=== PATIENT | male | born 1965 | race African-American/Black ===

== ENCOUNTER 2022-06-07 12:21 | Inpatient (IN) | payer OTHER ==
[2022-06-07 13:15] VITALS: BMI 30.1
[2022-06-07] MEDS ORDERED: IBUPROFEN 600 MG TABLET (FP) PO PRN (15:09)
[2022-06-07] MEDS ORDERED: ONDANSETRON *ODT* 4 MG TABLET SL PRN (15:09)
[2022-06-07] MEDS ORDERED: ACETAMINOPHEN 325 MG TABLET (FP) PO PRN ×2 (15:09)
[2022-06-07] MEDS ORDERED: MAGNESIUM HYDROX 2400MG/30ML ORAL SUSPENSION 30 ML CUP PO PRN (15:09)
[2022-06-07] MEDS ORDERED: BISMUTH SUBSALICYLATE 524 MG/30 ML PO PRN (15:09)
[2022-06-07] MEDS ORDERED: BENZOCAINE/MENTHOL (CHLORASEPTIC ) LOZENGE MM PRN (15:09)
[2022-06-07] MEDS ORDERED: LOPERAMIDE HCL 2 MG CAPSULE PO PRN (15:09)
[2022-06-07] MEDS ORDERED: DICYCLOMINE HCL 10 MG CAPSULE PO PRN (15:09)
[2022-06-07] MEDS ORDERED: MAGNESIUM CITRATE 300 ML BOTTLE PO PRN (15:09)
[2022-06-07] MEDS ORDERED: chlordiazePOXIDE HCL 25 MG CAPSULE PO PRN (15:09)
[2022-06-07] MEDS ORDERED: NALOXONE HCL (KLOXXADO) 8 MG SPRAY NS PRN (15:09)
[2022-06-07] MEDS ORDERED: MAG HYDROX/AL HYDROX/SIMETH 30 ML UNIT-DOSE CUP PO PRN (15:09)
[2022-06-07] MEDS ORDERED: IBUPROFEN 400 MG TABLET (FP) PO PRN (15:09)
[2022-06-07] MEDS: chlordiazePOXIDE HCL 25 MG CAPSULE PO SCH ×2 (16:33→23:38)
[2022-06-07] MEDS: hydrOXYzine PAMOATE 25 MG CAPSULE (FP) PO SCH ×2 (18:35→23:40)
[2022-06-07] MEDS: PRENATAL VITAMINS W/ FOLIC ACID TABLET (FP) PO SCH (20:30)
[2022-06-07] MEDS: NICOTINE 14 MG/24 HOURS TOPICAL PATCH TD SCH (20:30)
[2022-06-07] MEDS: MELATONIN 5 MG TABLETS PO SCH (23:38)
[2022-06-07] MEDS: THIAMINE HCL 100 MG TABLET (FP) PO SCH (23:38)
[2022-06-08] MEDS: hydrOXYzine PAMOATE 25 MG CAPSULE (FP) PO SCH ×5 (05:44→22:20)
[2022-06-08] MEDS: chlordiazePOXIDE HCL 25 MG CAPSULE PO SCH ×4 (05:44→22:20)
[2022-06-08 10:26] LABS: HEMATOCRIT 38.5 % (35.4-49); HEMOGLOBIN 12.3 GM/dL (11.7-16.9); MCH 29.8 pg (25.7-33.7); MEAN CELL VOLUME 93.2 fl (80-96); MEAN PLT VOLUME 9.2 fl (7.5-11.1); PLATELET COUNT 189 10^3/uL (134-434); RBC 4.13 M/mm3 (4.00-5.60); RDW 14.4 % (11.9-15.9)
[2022-06-08] MEDS: PRENATAL VITAMINS W/ FOLIC ACID TABLET (FP) PO SCH (10:46)
[2022-06-08] MEDS: NICOTINE 14 MG/24 HOURS TOPICAL PATCH TD SCH (10:46)
[2022-06-08] MEDS: NICOTINE 10 MG CARTRIDGE (INHALER) IH PRN (10:47)
[2022-06-08 10:53] LABS: ALBUMIN 3.5 g/dl (3.4-5.0); CALCIUM 9.1 mg/dL (8.5-10.1)
[2022-06-08 10:54] LABS: BLOOD UREA NITROGEN 16.4 mg/dL (7-18)
[2022-06-08 10:58] LABS: BILIRUBIN,TOTAL 0.2 mg/dL (0.2-1); TOT PROT 6.8 g/dl (6.4-8.2)
[2022-06-08 11:00] LABS: CREATININE 1.3 mg/dL (0.55-1.3)
[2022-06-08 14:49] LABS: HIV INTERPRETATION NEGATIVE (NEGATIVE)
[2022-06-08] MEDS: APIXABAN 5 MG TABLET PO SCH (22:20)
[2022-06-08] MEDS: THIAMINE HCL 100 MG TABLET (FP) PO SCH (22:20)
[2022-06-08] MEDS: MELATONIN 5 MG TABLETS PO SCH (22:20)
[2022-06-09] MEDS: chlordiazePOXIDE HCL 25 MG CAPSULE PO SCH ×4 (06:14→22:43)
[2022-06-09] MEDS: hydrOXYzine PAMOATE 25 MG CAPSULE (FP) PO SCH ×5 (06:14→22:43)
[2022-06-09] MEDS: PRENATAL VITAMINS W/ FOLIC ACID TABLET (FP) PO SCH (10:36)
[2022-06-09] MEDS: NICOTINE 14 MG/24 HOURS TOPICAL PATCH TD SCH (10:36)
[2022-06-09] MEDS: APIXABAN 5 MG TABLET PO SCH ×2 (10:36→22:42)
[2022-06-09] MEDS: LISINOPRIL 5 MG TABLET PO SCH (10:36)
[2022-06-09] MEDS: METHOCARBAMOL 500 MG TABLET PO PRN (13:07)
[2022-06-09] MEDS: MELATONIN 5 MG TABLETS PO SCH (22:42)
[2022-06-09] MEDS: THIAMINE HCL 100 MG TABLET (FP) PO SCH (22:44)
[2022-06-10] MEDS ORDERED: chlordiazePOXIDE HCL 10 MG CAPSULE PO PRN
[2022-06-10] MEDS: chlordiazePOXIDE HCL 10 MG CAPSULE PO SCH ×4 (06:15→22:30)
[2022-06-10] MEDS: hydrOXYzine PAMOATE 25 MG CAPSULE (FP) PO SCH ×5 (06:19→22:30)
[2022-06-10] MEDS: APIXABAN 5 MG TABLET PO SCH ×2 (10:29→22:30)
[2022-06-10] MEDS: NICOTINE 14 MG/24 HOURS TOPICAL PATCH TD SCH (10:29)
[2022-06-10] MEDS: LISINOPRIL 5 MG TABLET PO SCH (10:29)
[2022-06-10] MEDS: PRENATAL VITAMINS W/ FOLIC ACID TABLET (FP) PO SCH (10:29)
[2022-06-10] MEDS: NICOTINE 10 MG CARTRIDGE (INHALER) IH PRN (10:30)
[2022-06-10] MEDS: MELATONIN 5 MG TABLETS PO SCH (22:30)
[2022-06-10] MEDS: THIAMINE HCL 100 MG TABLET (FP) PO SCH (22:30)
[2022-06-11] MEDS: chlordiazePOXIDE HCL 10 MG CAPSULE PO SCH ×2 (06:36→17:52)
[2022-06-11] MEDS: hydrOXYzine PAMOATE 25 MG CAPSULE (FP) PO SCH ×5 (06:37→22:32)
[2022-06-11] MEDS: PRENATAL VITAMINS W/ FOLIC ACID TABLET (FP) PO SCH (10:17)
[2022-06-11] MEDS: APIXABAN 5 MG TABLET PO SCH ×2 (10:17→22:32)
[2022-06-11] MEDS: LISINOPRIL 5 MG TABLET PO SCH (10:18)
[2022-06-11] MEDS: NICOTINE 14 MG/24 HOURS TOPICAL PATCH TD SCH (10:19)
[2022-06-11 20:58] VITALS: RESP 18
[2022-06-11] MEDS: MELATONIN 5 MG TABLETS PO SCH (22:31)
[2022-06-11] MEDS: METHOCARBAMOL 500 MG TABLET PO PRN (22:31)
[2022-06-11] MEDS: THIAMINE HCL 100 MG TABLET (FP) PO SCH (22:32)
[2022-06-12] MEDS ORDERED: chlordiazePOXIDE HCL 10 MG CAPSULE PO ONE (05:00)
[2022-06-12] MEDS: hydrOXYzine PAMOATE 25 MG CAPSULE (FP) PO SCH ×2 (06:06→10:20)
[2022-06-12 08:47] VITALS: BP 137/72; PULSE 65; TEMP 98.3
[2022-06-12] MEDS: LISINOPRIL 5 MG TABLET PO SCH (10:18)
[2022-06-12] MEDS: NICOTINE 14 MG/24 HOURS TOPICAL PATCH TD SCH (10:19)
[2022-06-12] MEDS: APIXABAN 5 MG TABLET PO SCH (10:19)
[2022-06-12] MEDS: PRENATAL VITAMINS W/ FOLIC ACID TABLET (FP) PO SCH (10:19)
== END 2022-06-12 10:56 | disposition home or self-care (01) | DRG 773 ==
LOC: YASAS 12:21 → SUATTDRO 12:21 → Y3N 15:53
PROVIDERS: ADMIT Allergy & Immunology; ATTEND Surgery
PROC: HZ2ZZZZ Detoxification Services for Substance Abuse Treatment (ICD-10-PCS; principal; 2022-06-07)
DX: F11.23 Opioid dependence with withdrawal (principal); F10.230 Alcohol dependence with withdrawal, uncomplicated; F14.20 Cocaine dependence, uncomplicated; F17.210 Nicotine dependence, cigarettes, uncomplicated; E11.9 Type 2 diabetes mellitus without complications; I26.99 Other pulmonary embolism without acute cor pulmonale; Z79.84 Long term (current) use of oral hypoglycemic drugs; Z91.14 Patient's other noncompliance with medication regimen; Z79.01 Long term (current) use of anticoagulants; Z59.00 Homelessness unspecified
CPT/HCPCS: 36415; 80053; 82962; 85027; 86780; 87389; C9803-CS; U0003; U0005

== ENCOUNTER 2023-01-02 19:31 | Inpatient (IN) | payer OTHER ==
[2023-01-02 20:41] VITALS: BMI 25.2
[2023-01-02] MEDS ORDERED: LOPERAMIDE HCL 2 MG CAPSULE PO PRN (22:27)
[2023-01-02] MEDS ORDERED: MAGNESIUM HYDROX 2400MG/30ML ORAL SUSPENSION 30 ML CUP PO PRN (22:27)
[2023-01-02] MEDS ORDERED: BISMUTH SUBSALICYLATE 524 MG/30 ML PO PRN (22:27)
[2023-01-02] MEDS ORDERED: DICYCLOMINE HCL 10 MG CAPSULE PO PRN (22:27)
[2023-01-02] MEDS ORDERED: IBUPROFEN 400 MG TABLET (FP) PO PRN (22:27)
[2023-01-02] MEDS ORDERED: IBUPROFEN 600 MG TABLET (FP) PO PRN (22:27)
[2023-01-02] MEDS ORDERED: BENZOCAINE/MENTHOL (CHLORASEPTIC ) LOZENGE MM PRN (22:27)
[2023-01-02] MEDS ORDERED: ONDANSETRON *ODT* 4 MG TABLET SL PRN (22:27)
[2023-01-02] MEDS ORDERED: MAG HYDROX/AL HYDROX/SIMETH 30 ML UNIT-DOSE CUP PO PRN (22:27)
[2023-01-02] MEDS ORDERED: P-EPHED 60MG/TRIPROLIDI 2.5MG TABLET PO PRN (22:27)
[2023-01-02] MEDS ORDERED: POLYETHYLENE GLYCOL (HEALTHYLAX) 3350 17 GM PACKET PO PRN (22:27)
[2023-01-02] MEDS ORDERED: ACETAMINOPHEN 325 MG TABLET (FP) PO PRN ×2 (22:27)
[2023-01-03] MEDS: metFORMIN HCL 500 MG TABLET (FP) PO SCH ×2 (08:16→17:23)
[2023-01-03] MEDS ORDERED: chlordiazePOXIDE HCL 25 MG CAPSULE PO PRN (09:47)
[2023-01-03] MEDS ORDERED: ASPIRIN COATED 81 MG TABLET.EC PO SCH (10:00)
[2023-01-03] MEDS: LIDOCAINE 5% TOPICAL PATCH TP SCH (10:15)
[2023-01-03] MEDS: METHOCARBAMOL 500 MG TABLET PO PRN (10:16)
[2023-01-03] MEDS: APIXABAN 5 MG TABLET PO SCH ×2 (10:16→22:18)
[2023-01-03] MEDS: PRENATAL VITAMINS W/ FOLIC ACID TABLET (FP) PO SCH (10:17)
[2023-01-03] MEDS: LISINOPRIL 5 MG TABLET PO SCH (10:18)
[2023-01-03 11:00] LABS: HEMATOCRIT 38.1 % (35.4-49); MCH 31.8 pg (25.7-33.7); MCHC 34.1 g/dl (32.0-35.9); MEAN CELL VOLUME 93.3 fl (80-96); MEAN PLT VOLUME 7.9 fl (7.5-11.1); PLATELET COUNT 179 10^3/uL (134-434); RBC 4.08 M/mm3 (4.00-5.60); RDW 14.8 % (11.9-15.9); WHITE BLOOD COUNT 6.8 K/mm3 (4.0-10.0)
[2023-01-03] MEDS: chlordiazePOXIDE HCL 25 MG CAPSULE PO SCH ×3 (11:03→22:19)
[2023-01-03 11:29] LABS: BILIRUBIN,TOTAL 0.3 mg/dL (0.2-1); TOT PROT 6.6 g/dl (6.4-8.2)
[2023-01-03 11:41] LABS: BLOOD UREA NITROGEN 19.2 mg/dL (7-18)
[2023-01-03 11:43] LABS: ALBUMIN 3.3 g/dl (3.4-5.0)
[2023-01-03 12:46] LABS: HIV INTERPRETATION NEGATIVE (NEGATIVE)
[2023-01-03] MEDS: THIAMINE HCL 100 MG TABLET (FP) PO SCH (22:19)
[2023-01-03] MEDS: LIDOCAINE PATCH REMOVAL MC SCH (22:19)
[2023-01-04] MEDS: chlordiazePOXIDE HCL 25 MG CAPSULE PO SCH ×4 (05:14→22:35)
[2023-01-04] MEDS: metFORMIN HCL 500 MG TABLET (FP) PO SCH ×2 (08:00→17:18)
[2023-01-04] MEDS: APIXABAN 5 MG TABLET PO SCH ×2 (10:19→22:35)
[2023-01-04] MEDS: ASPIRIN 81 MG CHEWABLE TABLETS PO SCH (10:19)
[2023-01-04] MEDS: LISINOPRIL 5 MG TABLET PO SCH (10:20)
[2023-01-04] MEDS: LIDOCAINE 5% TOPICAL PATCH TP SCH (10:20)
[2023-01-04] MEDS: PRENATAL VITAMINS W/ FOLIC ACID TABLET (FP) PO SCH (10:20)
[2023-01-04] MEDS: THIAMINE HCL 100 MG TABLET (FP) PO SCH (22:35)
[2023-01-04] MEDS: LIDOCAINE PATCH REMOVAL MC SCH (22:36)
[2023-01-05] MEDS: chlordiazePOXIDE HCL 25 MG CAPSULE PO SCH ×4 (05:20→22:36)
[2023-01-05] MEDS: guaiFENesin 200 MG/10 ML 10 ML UNIT-DOSE CUPS PO PRN ×2 (05:33→22:38)
[2023-01-05] MEDS: metFORMIN HCL 500 MG TABLET (FP) PO SCH ×2 (06:29→16:40)
[2023-01-05] MEDS: LIDOCAINE 5% TOPICAL PATCH TP SCH (10:29)
[2023-01-05] MEDS: PRENATAL VITAMINS W/ FOLIC ACID TABLET (FP) PO SCH (10:29)
[2023-01-05] MEDS: METHOCARBAMOL 500 MG TABLET PO PRN (10:29)
[2023-01-05] MEDS: ASPIRIN 81 MG CHEWABLE TABLETS PO SCH (10:29)
[2023-01-05] MEDS: APIXABAN 5 MG TABLET PO SCH ×2 (10:29→22:36)
[2023-01-05] MEDS: LISINOPRIL 5 MG TABLET PO SCH (10:30)
[2023-01-05] MEDS: hydrOXYzine PAMOATE 25 MG CAPSULE (FP) PO PRN (10:30)
[2023-01-05] MEDS: MELATONIN 5 MG TABLETS PO PRN (22:36)
[2023-01-05] MEDS: THIAMINE HCL 100 MG TABLET (FP) PO SCH (22:36)
[2023-01-05] MEDS: LIDOCAINE PATCH REMOVAL MC SCH (23:34)
[2023-01-06] MEDS ORDERED: chlordiazePOXIDE HCL 10 MG CAPSULE PO PRN
[2023-01-06] MEDS: chlordiazePOXIDE HCL 10 MG CAPSULE PO SCH ×4 (05:24→22:24)
[2023-01-06] MEDS: guaiFENesin 200 MG/10 ML 10 ML UNIT-DOSE CUPS PO PRN (05:29)
[2023-01-06] MEDS: metFORMIN HCL 500 MG TABLET (FP) PO SCH (06:21)
[2023-01-06] MEDS: ASPIRIN 81 MG CHEWABLE TABLETS PO SCH (10:14)
[2023-01-06] MEDS: LISINOPRIL 5 MG TABLET PO SCH (10:14)
[2023-01-06] MEDS: hydrOXYzine PAMOATE 25 MG CAPSULE (FP) PO PRN (10:14)
[2023-01-06] MEDS: PRENATAL VITAMINS W/ FOLIC ACID TABLET (FP) PO SCH (10:14)
[2023-01-06] MEDS: APIXABAN 5 MG TABLET PO SCH ×2 (10:14→22:24)
[2023-01-06] MEDS: LIDOCAINE 5% TOPICAL PATCH TP SCH (10:15)
[2023-01-06] MEDS: LIDOCAINE PATCH REMOVAL MC SCH (22:24)
[2023-01-06] MEDS: THIAMINE HCL 100 MG TABLET (FP) PO SCH (22:24)
[2023-01-06] MEDS: MELATONIN 5 MG TABLETS PO PRN (22:25)
[2023-01-06] MEDS: METHOCARBAMOL 500 MG TABLET PO PRN (22:26)
[2023-01-07] MEDS: chlordiazePOXIDE HCL 10 MG CAPSULE PO SCH ×2 (05:39→17:27)
[2023-01-07] MEDS: guaiFENesin 200 MG/10 ML 10 ML UNIT-DOSE CUPS PO PRN (07:49)
[2023-01-07] MEDS: LIDOCAINE 5% TOPICAL PATCH TP SCH (10:20)
[2023-01-07] MEDS: APIXABAN 5 MG TABLET PO SCH ×2 (10:21→21:25)
[2023-01-07] MEDS: LISINOPRIL 5 MG TABLET PO SCH (10:22)
[2023-01-07] MEDS: ASPIRIN 81 MG CHEWABLE TABLETS PO SCH (10:22)
[2023-01-07] MEDS: PRENATAL VITAMINS W/ FOLIC ACID TABLET (FP) PO SCH (10:23)
[2023-01-07] MEDS: THIAMINE HCL 100 MG TABLET (FP) PO SCH (21:24)
[2023-01-07] MEDS: LIDOCAINE PATCH REMOVAL MC SCH (21:26)
[2023-01-07] MEDS: MELATONIN 5 MG TABLETS PO PRN (21:26)
[2023-01-08] MEDS ORDERED: chlordiazePOXIDE HCL 10 MG CAPSULE PO ONE (05:00)
[2023-01-08 09:28] VITALS: BP 119/56; PULSE 83; RESP 18; TEMP 97.7
[2023-01-08] MEDS: PRENATAL VITAMINS W/ FOLIC ACID TABLET (FP) PO SCH (09:32)
[2023-01-08] MEDS: LIDOCAINE 5% TOPICAL PATCH TP SCH (09:32)
[2023-01-08] MEDS: LISINOPRIL 5 MG TABLET PO SCH (09:32)
[2023-01-08] MEDS: hydrOXYzine PAMOATE 25 MG CAPSULE (FP) PO PRN (09:33)
[2023-01-08] MEDS: APIXABAN 5 MG TABLET PO SCH (09:33)
[2023-01-08] MEDS: METHOCARBAMOL 500 MG TABLET PO PRN (09:33)
[2023-01-08] MEDS: ASPIRIN 81 MG CHEWABLE TABLETS PO SCH (09:33)
== END 2023-01-08 11:45 | disposition other institution (70) | DRG 774 ==
LOC: YASAS 19:31 → Y6N 22:29 → UNDOADMIN 22:29 → Y6N 22:33
PROVIDERS: ADMIT Allergy & Immunology; ATTEND Surgery
PROC: HZ2ZZZZ Detoxification Services for Substance Abuse Treatment (ICD-10-PCS; principal; 2023-01-02)
DX: F10.230 Alcohol dependence with withdrawal, uncomplicated (principal); F14.20 Cocaine dependence, uncomplicated; F17.210 Nicotine dependence, cigarettes, uncomplicated; I10 Essential (primary) hypertension; E11.9 Type 2 diabetes mellitus without complications; Z79.84 Long term (current) use of oral hypoglycemic drugs; Z86.711 Personal history of pulmonary embolism
CPT/HCPCS: 36415; 80053; 82962; 83036; 85027; 86780; 87389; 87811; C9803-CS; U0003; U0005

== ENCOUNTER 2023-01-08 12:05 | Inpatient (IN) | payer OTHER ==
[2023-01-08] MEDS ORDERED: POLYETHYLENE GLYCOL (HEALTHYLAX) 3350 17 GM PACKET PO PRN (15:34)
[2023-01-08] MEDS ORDERED: MAGNESIUM HYDROX 2400MG/30ML ORAL SUSPENSION 30 ML CUP PO PRN (15:34)
[2023-01-08] MEDS ORDERED: ACETAMINOPHEN 325 MG TABLET (FP) PO PRN (15:34)
[2023-01-08] MEDS ORDERED: LOPERAMIDE HCL 2 MG CAPSULE PO PRN (15:34)
[2023-01-08] MEDS ORDERED: P-EPHED 60MG/TRIPROLIDI 2.5MG TABLET PO PRN (15:34)
[2023-01-08] MEDS ORDERED: MAG HYDROX/AL HYDROX/SIMETH 30 ML UNIT-DOSE CUP PO PRN (15:34)
[2023-01-08] MEDS ORDERED: IBUPROFEN 400 MG TABLET (FP) PO PRN (15:34)
[2023-01-08] MEDS: metFORMIN HCL 500 MG TABLET (FP) PO SCH (16:54)
[2023-01-08] MEDS: APIXABAN 5 MG TABLET PO SCH (21:15)
[2023-01-08] MEDS: MELATONIN 5 MG TABLETS PO SCH (21:16)
[2023-01-08] MEDS: THIAMINE HCL 100 MG TABLET (FP) PO SCH (21:16)
[2023-01-08] MEDS: guaiFENesin 200 MG/10 ML 10 ML UNIT-DOSE CUPS PO PRN (21:17)
[2023-01-08] MEDS ORDERED: metFORMIN HCL 500 MG TABLET (FP) PO SCH (22:00)
[2023-01-09] MEDS: metFORMIN HCL 500 MG TABLET (FP) PO SCH ×3 (06:22→16:34)
[2023-01-09] MEDS: guaiFENesin 200 MG/10 ML 10 ML UNIT-DOSE CUPS PO PRN (06:22)
[2023-01-09] MEDS: NICOTINE 7 MG/24 HOURS TOPICAL PATCH TD SCH (10:04)
[2023-01-09] MEDS: ASPIRIN 81 MG CHEWABLE TABLETS PO SCH (10:04)
[2023-01-09] MEDS: PRENATAL VITAMINS W/ FOLIC ACID TABLET (FP) PO SCH (10:04)
[2023-01-09] MEDS: APIXABAN 5 MG TABLET PO SCH ×2 (10:04→21:13)
[2023-01-09] MEDS: LISINOPRIL 5 MG TABLET PO SCH (10:05)
[2023-01-09] MEDS ORDERED: METHOCARBAMOL 500 MG TABLET PO PRN (13:51)
[2023-01-09] MEDS: LIDOCAINE 5% TOPICAL PATCH TP SCH (14:11)
[2023-01-09] MEDS: hydrOXYzine PAMOATE 25 MG CAPSULE (FP) PO PRN (21:13)
[2023-01-09] MEDS: THIAMINE HCL 100 MG TABLET (FP) PO SCH (21:13)
[2023-01-09] MEDS: MELATONIN 5 MG TABLETS PO SCH (21:13)
[2023-01-09] MEDS: LIDOCAINE PATCH REMOVAL MC SCH (21:14)
[2023-01-10] MEDS: metFORMIN HCL 500 MG TABLET (FP) PO SCH ×2 (06:26→17:19)
[2023-01-10] MEDS: guaiFENesin 200 MG/10 ML 10 ML UNIT-DOSE CUPS PO PRN ×2 (06:57→22:40)
[2023-01-10] MEDS: PRENATAL VITAMINS W/ FOLIC ACID TABLET (FP) PO SCH (09:42)
[2023-01-10] MEDS: ASPIRIN 81 MG CHEWABLE TABLETS PO SCH (09:43)
[2023-01-10] MEDS: LISINOPRIL 5 MG TABLET PO SCH (09:43)
[2023-01-10] MEDS: NICOTINE 7 MG/24 HOURS TOPICAL PATCH TD SCH (09:43)
[2023-01-10] MEDS: APIXABAN 5 MG TABLET PO SCH ×2 (09:43→21:43)
[2023-01-10] MEDS: LIDOCAINE 5% TOPICAL PATCH TP SCH (09:44)
[2023-01-10] MEDS: MELATONIN 5 MG TABLETS PO SCH (21:44)
[2023-01-10] MEDS: LIDOCAINE PATCH REMOVAL MC SCH (21:44)
[2023-01-10] MEDS: THIAMINE HCL 100 MG TABLET (FP) PO SCH (21:44)
[2023-01-11] MEDS: metFORMIN HCL 500 MG TABLET (FP) PO SCH ×2 (06:29→16:57)
[2023-01-11] MEDS: BENZOCAINE/MENTHOL (CHLORASEPTIC ) LOZENGE MM PRN (06:29)
[2023-01-11] MEDS: guaiFENesin 200 MG/10 ML 10 ML UNIT-DOSE CUPS PO PRN (06:30)
[2023-01-11] MEDS: ASPIRIN 81 MG CHEWABLE TABLETS PO SCH (10:01)
[2023-01-11] MEDS: PRENATAL VITAMINS W/ FOLIC ACID TABLET (FP) PO SCH (10:01)
[2023-01-11] MEDS: LIDOCAINE 5% TOPICAL PATCH TP SCH (10:02)
[2023-01-11] MEDS: APIXABAN 5 MG TABLET PO SCH ×2 (10:02→21:15)
[2023-01-11] MEDS: NICOTINE 7 MG/24 HOURS TOPICAL PATCH TD SCH (10:02)
[2023-01-11] MEDS: LISINOPRIL 5 MG TABLET PO SCH (10:03)
[2023-01-11] MEDS: VITAMINS A AND D TOPICAL OINTMENT 60 GM TUBE TP SCH (15:45)
[2023-01-11] MEDS: LIDOCAINE PATCH REMOVAL MC SCH (21:15)
[2023-01-11] MEDS: THIAMINE HCL 100 MG TABLET (FP) PO SCH (21:15)
[2023-01-11] MEDS: MELATONIN 5 MG TABLETS PO SCH (21:15)
[2023-01-12] MEDS: metFORMIN HCL 500 MG TABLET (FP) PO SCH ×2 (06:18→16:47)
[2023-01-12] MEDS: NICOTINE 7 MG/24 HOURS TOPICAL PATCH TD SCH (09:35)
[2023-01-12] MEDS: PRENATAL VITAMINS W/ FOLIC ACID TABLET (FP) PO SCH (09:35)
[2023-01-12] MEDS: ASPIRIN 81 MG CHEWABLE TABLETS PO SCH (09:37)
[2023-01-12] MEDS: APIXABAN 5 MG TABLET PO SCH ×2 (09:37→21:18)
[2023-01-12] MEDS: LIDOCAINE 5% TOPICAL PATCH TP SCH (09:38)
[2023-01-12] MEDS: LISINOPRIL 5 MG TABLET PO SCH (09:38)
[2023-01-12] MEDS: VITAMINS A AND D TOPICAL OINTMENT 60 GM TUBE TP SCH (09:39)
[2023-01-12] MEDS: THIAMINE HCL 100 MG TABLET (FP) PO SCH (21:18)
[2023-01-12] MEDS: LIDOCAINE PATCH REMOVAL MC SCH (21:18)
[2023-01-12] MEDS: MELATONIN 5 MG TABLETS PO SCH (21:18)
[2023-01-12] MEDS: hydrOXYzine PAMOATE 25 MG CAPSULE (FP) PO PRN (21:18)
[2023-01-13] MEDS: metFORMIN HCL 500 MG TABLET (FP) PO SCH (07:34)
[2023-01-13] MEDS: PRENATAL VITAMINS W/ FOLIC ACID TABLET (FP) PO SCH (09:52)
[2023-01-13] MEDS: ASPIRIN 81 MG CHEWABLE TABLETS PO SCH (09:53)
[2023-01-13] MEDS: NICOTINE 7 MG/24 HOURS TOPICAL PATCH TD SCH (09:53)
[2023-01-13] MEDS: APIXABAN 5 MG TABLET PO SCH ×2 (09:53→21:16)
[2023-01-13] MEDS: VITAMINS A AND D TOPICAL OINTMENT 60 GM TUBE TP SCH (09:54)
[2023-01-13] MEDS: LIDOCAINE 5% TOPICAL PATCH TP SCH (09:54)
[2023-01-13] MEDS: LISINOPRIL 5 MG TABLET PO SCH (09:54)
[2023-01-13] MEDS: MELATONIN 5 MG TABLETS PO SCH (21:16)
[2023-01-13] MEDS: THIAMINE HCL 100 MG TABLET (FP) PO SCH (21:16)
[2023-01-13] MEDS: LIDOCAINE PATCH REMOVAL MC SCH (21:17)
[2023-01-14] MEDS: LISINOPRIL 5 MG TABLET PO SCH (10:00)
[2023-01-14] MEDS: ASPIRIN 81 MG CHEWABLE TABLETS PO SCH (10:00)
[2023-01-14] MEDS: NICOTINE 7 MG/24 HOURS TOPICAL PATCH TD SCH (10:00)
[2023-01-14] MEDS: PRENATAL VITAMINS W/ FOLIC ACID TABLET (FP) PO SCH (10:00)
[2023-01-14] MEDS: APIXABAN 5 MG TABLET PO SCH ×2 (10:00→22:18)
[2023-01-14] MEDS: LIDOCAINE 5% TOPICAL PATCH TP SCH (10:00)
[2023-01-14] MEDS: VITAMINS A AND D TOPICAL OINTMENT 60 GM TUBE TP SCH (10:00)
[2023-01-14] MEDS: MELATONIN 5 MG TABLETS PO SCH (22:17)
[2023-01-14] MEDS: THIAMINE HCL 100 MG TABLET (FP) PO SCH (22:18)
[2023-01-14] MEDS: LIDOCAINE PATCH REMOVAL MC SCH (22:18)
[2023-01-15] MEDS: PRENATAL VITAMINS W/ FOLIC ACID TABLET (FP) PO SCH (09:41)
[2023-01-15] MEDS: LIDOCAINE 5% TOPICAL PATCH TP SCH (09:41)
[2023-01-15] MEDS: NICOTINE 7 MG/24 HOURS TOPICAL PATCH TD SCH (09:42)
[2023-01-15] MEDS: VITAMINS A AND D TOPICAL OINTMENT 60 GM TUBE TP SCH (09:42)
[2023-01-15] MEDS: LISINOPRIL 5 MG TABLET PO SCH (09:42)
[2023-01-15] MEDS: APIXABAN 5 MG TABLET PO SCH ×2 (09:42→21:25)
[2023-01-15] MEDS: ASPIRIN 81 MG CHEWABLE TABLETS PO SCH (09:42)
[2023-01-15] MEDS: LIDOCAINE PATCH REMOVAL MC SCH (21:19)
[2023-01-15] MEDS: MELATONIN 5 MG TABLETS PO SCH (21:25)
[2023-01-15] MEDS: THIAMINE HCL 100 MG TABLET (FP) PO SCH (21:25)
[2023-01-15] MEDS: guaiFENesin 200 MG/10 ML 10 ML UNIT-DOSE CUPS PO PRN (21:26)
[2023-01-16] MEDS: PRENATAL VITAMINS W/ FOLIC ACID TABLET (FP) PO SCH (09:34)
[2023-01-16] MEDS: LIDOCAINE 5% TOPICAL PATCH TP SCH (09:34)
[2023-01-16] MEDS: APIXABAN 5 MG TABLET PO SCH ×2 (09:35→21:10)
[2023-01-16] MEDS: ASPIRIN 81 MG CHEWABLE TABLETS PO SCH (09:35)
[2023-01-16] MEDS: NICOTINE 7 MG/24 HOURS TOPICAL PATCH TD SCH (09:35)
[2023-01-16] MEDS: LISINOPRIL 5 MG TABLET PO SCH (09:35)
[2023-01-16] MEDS: VITAMINS A AND D TOPICAL OINTMENT 60 GM TUBE TP SCH (09:36)
[2023-01-16] MEDS: NICOTINE 10 MG CARTRIDGE (INHALER) IH PRN ×2 (09:37→20:04)
[2023-01-16] MEDS: THIAMINE HCL 100 MG TABLET (FP) PO SCH (21:09)
[2023-01-16] MEDS: MELATONIN 5 MG TABLETS PO SCH (21:09)
[2023-01-16] MEDS: guaiFENesin 200 MG/10 ML 10 ML UNIT-DOSE CUPS PO PRN (21:11)
[2023-01-16] MEDS: LIDOCAINE PATCH REMOVAL MC SCH (22:31)
[2023-01-17] MEDS: VITAMINS A AND D TOPICAL OINTMENT 60 GM TUBE TP SCH (09:51)
[2023-01-17] MEDS: ASPIRIN 81 MG CHEWABLE TABLETS PO SCH (09:51)
[2023-01-17] MEDS: APIXABAN 5 MG TABLET PO SCH ×2 (09:52→21:12)
[2023-01-17] MEDS: PRENATAL VITAMINS W/ FOLIC ACID TABLET (FP) PO SCH (09:52)
[2023-01-17] MEDS: LIDOCAINE 5% TOPICAL PATCH TP SCH (09:52)
[2023-01-17] MEDS: NICOTINE 7 MG/24 HOURS TOPICAL PATCH TD SCH (09:52)
[2023-01-17] MEDS: LISINOPRIL 5 MG TABLET PO SCH (09:53)
[2023-01-17] MEDS: NICOTINE 10 MG CARTRIDGE (INHALER) IH PRN ×2 (09:54→21:14)
[2023-01-17] MEDS: MELATONIN 5 MG TABLETS PO SCH (21:12)
[2023-01-17] MEDS: THIAMINE HCL 100 MG TABLET (FP) PO SCH (21:12)
[2023-01-17] MEDS: LIDOCAINE PATCH REMOVAL MC SCH (21:15)
[2023-01-18] MEDS: PRENATAL VITAMINS W/ FOLIC ACID TABLET (FP) PO SCH (09:43)
[2023-01-18] MEDS: APIXABAN 5 MG TABLET PO SCH ×2 (09:44→21:17)
[2023-01-18] MEDS: LISINOPRIL 5 MG TABLET PO SCH (09:44)
[2023-01-18] MEDS: LIDOCAINE 5% TOPICAL PATCH TP SCH (09:44)
[2023-01-18] MEDS: ASPIRIN 81 MG CHEWABLE TABLETS PO SCH (09:44)
[2023-01-18] MEDS: NICOTINE 7 MG/24 HOURS TOPICAL PATCH TD SCH (09:44)
[2023-01-18] MEDS: VITAMINS A AND D TOPICAL OINTMENT 60 GM TUBE TP SCH (09:45)
[2023-01-18] MEDS: NICOTINE 10 MG CARTRIDGE (INHALER) IH PRN ×2 (09:46→16:51)
[2023-01-18] MEDS: TOLNAFTATE 1% CREAM 15 GM TUBE TP SCH ×2 (13:22→21:17)
[2023-01-18] MEDS: LIDOCAINE PATCH REMOVAL MC SCH (21:17)
[2023-01-18] MEDS: THIAMINE HCL 100 MG TABLET (FP) PO SCH (21:17)
[2023-01-18] MEDS: MELATONIN 5 MG TABLETS PO SCH (21:17)
[2023-01-19] MEDS: BENZOCAINE/MENTHOL (CHLORASEPTIC ) LOZENGE MM PRN (06:23)
[2023-01-19] MEDS: NICOTINE 10 MG CARTRIDGE (INHALER) IH PRN ×2 (09:43→21:10)
[2023-01-19] MEDS: LIDOCAINE 5% TOPICAL PATCH TP SCH (09:44)
[2023-01-19] MEDS: VITAMINS A AND D TOPICAL OINTMENT 60 GM TUBE TP SCH (09:44)
[2023-01-19] MEDS: ASPIRIN 81 MG CHEWABLE TABLETS PO SCH (09:44)
[2023-01-19] MEDS: TOLNAFTATE 1% CREAM 15 GM TUBE TP SCH ×2 (09:44→21:08)
[2023-01-19] MEDS: APIXABAN 5 MG TABLET PO SCH ×2 (09:44→21:09)
[2023-01-19] MEDS: NICOTINE 7 MG/24 HOURS TOPICAL PATCH TD SCH (09:45)
[2023-01-19] MEDS: PRENATAL VITAMINS W/ FOLIC ACID TABLET (FP) PO SCH (09:45)
[2023-01-19] MEDS: LISINOPRIL 5 MG TABLET PO SCH (09:46)
[2023-01-19] MEDS: MELATONIN 5 MG TABLETS PO SCH (21:08)
[2023-01-19] MEDS: THIAMINE HCL 100 MG TABLET (FP) PO SCH (21:08)
[2023-01-19] MEDS: LIDOCAINE PATCH REMOVAL MC SCH (21:09)
[2023-01-20] MEDS: APIXABAN 5 MG TABLET PO SCH ×2 (09:58→21:23)
[2023-01-20] MEDS: PRENATAL VITAMINS W/ FOLIC ACID TABLET (FP) PO SCH (09:58)
[2023-01-20] MEDS: ASPIRIN 81 MG CHEWABLE TABLETS PO SCH (09:58)
[2023-01-20] MEDS: NICOTINE 7 MG/24 HOURS TOPICAL PATCH TD SCH (09:59)
[2023-01-20] MEDS: LIDOCAINE 5% TOPICAL PATCH TP SCH (09:59)
[2023-01-20] MEDS: LISINOPRIL 5 MG TABLET PO SCH (10:00)
[2023-01-20] MEDS: TOLNAFTATE 1% CREAM 15 GM TUBE TP SCH ×2 (10:00→21:24)
[2023-01-20] MEDS: NICOTINE 10 MG CARTRIDGE (INHALER) IH PRN ×3 (10:01→21:25)
[2023-01-20] MEDS: VITAMINS A AND D TOPICAL OINTMENT 60 GM TUBE TP SCH (10:01)
[2023-01-20] MEDS: LIDOCAINE PATCH REMOVAL MC SCH (21:23)
[2023-01-20] MEDS: MELATONIN 5 MG TABLETS PO SCH (21:23)
[2023-01-20] MEDS: THIAMINE HCL 100 MG TABLET (FP) PO SCH (21:24)
[2023-01-21] MEDS: PRENATAL VITAMINS W/ FOLIC ACID TABLET (FP) PO SCH (09:46)
[2023-01-21] MEDS: APIXABAN 5 MG TABLET PO SCH ×2 (09:47→21:16)
[2023-01-21] MEDS: ASPIRIN 81 MG CHEWABLE TABLETS PO SCH (09:47)
[2023-01-21] MEDS: LIDOCAINE 5% TOPICAL PATCH TP SCH (09:48)
[2023-01-21] MEDS: LISINOPRIL 5 MG TABLET PO SCH (09:49)
[2023-01-21] MEDS: TOLNAFTATE 1% CREAM 15 GM TUBE TP SCH ×2 (09:49→21:16)
[2023-01-21] MEDS: NICOTINE 7 MG/24 HOURS TOPICAL PATCH TD SCH (09:49)
[2023-01-21] MEDS: NICOTINE 10 MG CARTRIDGE (INHALER) IH PRN ×2 (09:50→21:16)
[2023-01-21] MEDS: VITAMINS A AND D TOPICAL OINTMENT 60 GM TUBE TP SCH (09:50)
[2023-01-21] MEDS: LIDOCAINE PATCH REMOVAL MC SCH (21:16)
[2023-01-21] MEDS: THIAMINE HCL 100 MG TABLET (FP) PO SCH (21:16)
[2023-01-21] MEDS: MELATONIN 5 MG TABLETS PO SCH (21:16)
[2023-01-22] MEDS: PRENATAL VITAMINS W/ FOLIC ACID TABLET (FP) PO SCH (09:58)
[2023-01-22] MEDS: NICOTINE 7 MG/24 HOURS TOPICAL PATCH TD SCH (09:58)
[2023-01-22] MEDS: LIDOCAINE 5% TOPICAL PATCH TP SCH (09:59)
[2023-01-22] MEDS: ASPIRIN 81 MG CHEWABLE TABLETS PO SCH (09:59)
[2023-01-22] MEDS: APIXABAN 5 MG TABLET PO SCH ×2 (09:59→21:26)
[2023-01-22] MEDS: TOLNAFTATE 1% CREAM 15 GM TUBE TP SCH ×2 (10:00→21:27)
[2023-01-22] MEDS: LISINOPRIL 5 MG TABLET PO SCH (10:00)
[2023-01-22] MEDS: NICOTINE 10 MG CARTRIDGE (INHALER) IH PRN ×2 (10:02→21:27)
[2023-01-22] MEDS: VITAMINS A AND D TOPICAL OINTMENT 60 GM TUBE TP SCH (10:13)
[2023-01-22] MEDS: THIAMINE HCL 100 MG TABLET (FP) PO SCH (21:26)
[2023-01-22] MEDS: MELATONIN 5 MG TABLETS PO SCH (21:26)
[2023-01-22] MEDS: LIDOCAINE PATCH REMOVAL MC SCH (21:27)
[2023-01-23] MEDS: PRENATAL VITAMINS W/ FOLIC ACID TABLET (FP) PO SCH (10:20)
[2023-01-23] MEDS: NICOTINE 10 MG CARTRIDGE (INHALER) IH PRN ×3 (10:20→21:27)
[2023-01-23] MEDS: LIDOCAINE 5% TOPICAL PATCH TP SCH (10:21)
[2023-01-23] MEDS: ASPIRIN 81 MG CHEWABLE TABLETS PO SCH (10:21)
[2023-01-23] MEDS: APIXABAN 5 MG TABLET PO SCH ×2 (10:21→21:27)
[2023-01-23] MEDS: VITAMINS A AND D TOPICAL OINTMENT 60 GM TUBE TP SCH (10:22)
[2023-01-23] MEDS: NICOTINE 7 MG/24 HOURS TOPICAL PATCH TD SCH (10:22)
[2023-01-23] MEDS: TOLNAFTATE 1% CREAM 15 GM TUBE TP SCH ×2 (10:22→21:28)
[2023-01-23] MEDS: LISINOPRIL 5 MG TABLET PO SCH (11:00)
[2023-01-23] MEDS: THIAMINE HCL 100 MG TABLET (FP) PO SCH (21:27)
[2023-01-23] MEDS: LIDOCAINE PATCH REMOVAL MC SCH (21:27)
[2023-01-23] MEDS: MELATONIN 5 MG TABLETS PO SCH (21:27)
[2023-01-24] MEDS: PRENATAL VITAMINS W/ FOLIC ACID TABLET (FP) PO SCH (09:59)
[2023-01-24] MEDS: NICOTINE 10 MG CARTRIDGE (INHALER) IH PRN ×3 (09:59→21:43)
[2023-01-24] MEDS: ASPIRIN 81 MG CHEWABLE TABLETS PO SCH (10:00)
[2023-01-24] MEDS: NICOTINE 7 MG/24 HOURS TOPICAL PATCH TD SCH (10:00)
[2023-01-24] MEDS: APIXABAN 5 MG TABLET PO SCH ×2 (10:00→21:43)
[2023-01-24] MEDS: LIDOCAINE 5% TOPICAL PATCH TP SCH (10:00)
[2023-01-24] MEDS: TOLNAFTATE 1% CREAM 15 GM TUBE TP SCH ×2 (10:00→21:44)
[2023-01-24] MEDS: VITAMINS A AND D TOPICAL OINTMENT 60 GM TUBE TP SCH (10:01)
[2023-01-24] MEDS: LISINOPRIL 5 MG TABLET PO SCH (10:01)
[2023-01-24] MEDS: MELATONIN 5 MG TABLETS PO SCH (21:43)
[2023-01-24] MEDS: THIAMINE HCL 100 MG TABLET (FP) PO SCH (21:43)
[2023-01-24] MEDS: LIDOCAINE PATCH REMOVAL MC SCH (21:44)
[2023-01-25] MEDS: PRENATAL VITAMINS W/ FOLIC ACID TABLET (FP) PO SCH (10:03)
[2023-01-25] MEDS: NICOTINE 10 MG CARTRIDGE (INHALER) IH PRN ×3 (10:03→21:39)
[2023-01-25] MEDS: LIDOCAINE 5% TOPICAL PATCH TP SCH (10:04)
[2023-01-25] MEDS: APIXABAN 5 MG TABLET PO SCH ×2 (10:04→21:38)
[2023-01-25] MEDS: ASPIRIN 81 MG CHEWABLE TABLETS PO SCH (10:04)
[2023-01-25] MEDS: VITAMINS A AND D TOPICAL OINTMENT 60 GM TUBE TP SCH (10:05)
[2023-01-25] MEDS: TOLNAFTATE 1% CREAM 15 GM TUBE TP SCH ×2 (10:05→21:39)
[2023-01-25] MEDS: NICOTINE 7 MG/24 HOURS TOPICAL PATCH TD SCH (10:05)
[2023-01-25] MEDS: LISINOPRIL 5 MG TABLET PO SCH (10:06)
[2023-01-25] MEDS: THIAMINE HCL 100 MG TABLET (FP) PO SCH (21:38)
[2023-01-25] MEDS: MELATONIN 5 MG TABLETS PO SCH (21:38)
[2023-01-25] MEDS: LIDOCAINE PATCH REMOVAL MC SCH (21:39)
[2023-01-26] MEDS: ASPIRIN 81 MG CHEWABLE TABLETS PO SCH (09:59)
[2023-01-26] MEDS: APIXABAN 5 MG TABLET PO SCH ×2 (09:59→21:11)
[2023-01-26] MEDS: LIDOCAINE 5% TOPICAL PATCH TP SCH (09:59)
[2023-01-26] MEDS: NICOTINE 7 MG/24 HOURS TOPICAL PATCH TD SCH (09:59)
[2023-01-26] MEDS: VITAMINS A AND D TOPICAL OINTMENT 60 GM TUBE TP SCH (10:00)
[2023-01-26] MEDS: PRENATAL VITAMINS W/ FOLIC ACID TABLET (FP) PO SCH (10:00)
[2023-01-26] MEDS: LISINOPRIL 5 MG TABLET PO SCH (10:00)
[2023-01-26] MEDS: TOLNAFTATE 1% CREAM 15 GM TUBE TP SCH ×2 (10:01→21:11)
[2023-01-26] MEDS: NICOTINE 10 MG CARTRIDGE (INHALER) IH PRN ×2 (10:02→21:10)
[2023-01-26] MEDS: MELATONIN 5 MG TABLETS PO SCH (21:10)
[2023-01-26] MEDS: LIDOCAINE PATCH REMOVAL MC SCH (21:11)
[2023-01-26] MEDS: THIAMINE HCL 100 MG TABLET (FP) PO SCH (21:11)
[2023-01-27] MEDS: NICOTINE 7 MG/24 HOURS TOPICAL PATCH TD SCH (10:03)
[2023-01-27] MEDS: ASPIRIN 81 MG CHEWABLE TABLETS PO SCH (10:03)
[2023-01-27] MEDS: PRENATAL VITAMINS W/ FOLIC ACID TABLET (FP) PO SCH (10:03)
[2023-01-27] MEDS: APIXABAN 5 MG TABLET PO SCH ×2 (10:03→21:20)
[2023-01-27] MEDS: LIDOCAINE 5% TOPICAL PATCH TP SCH (10:04)
[2023-01-27] MEDS: LISINOPRIL 5 MG TABLET PO SCH (10:04)
[2023-01-27] MEDS: TOLNAFTATE 1% CREAM 15 GM TUBE TP SCH ×2 (10:05→21:21)
[2023-01-27] MEDS: VITAMINS A AND D TOPICAL OINTMENT 60 GM TUBE TP SCH (10:05)
[2023-01-27] MEDS: NICOTINE 10 MG CARTRIDGE (INHALER) IH PRN ×2 (10:06→21:21)
[2023-01-27] MEDS: THIAMINE HCL 100 MG TABLET (FP) PO SCH (21:20)
[2023-01-27] MEDS: MELATONIN 5 MG TABLETS PO SCH (21:21)
[2023-01-27] MEDS: LIDOCAINE PATCH REMOVAL MC SCH (21:21)
[2023-01-28] MEDS: PRENATAL VITAMINS W/ FOLIC ACID TABLET (FP) PO SCH (09:44)
[2023-01-28] MEDS: LISINOPRIL 5 MG TABLET PO SCH (09:45)
[2023-01-28] MEDS: LIDOCAINE 5% TOPICAL PATCH TP SCH (09:45)
[2023-01-28] MEDS: APIXABAN 5 MG TABLET PO SCH ×2 (09:45→21:42)
[2023-01-28] MEDS: NICOTINE 7 MG/24 HOURS TOPICAL PATCH TD SCH (09:45)
[2023-01-28] MEDS: ASPIRIN 81 MG CHEWABLE TABLETS PO SCH (09:45)
[2023-01-28] MEDS: TOLNAFTATE 1% CREAM 15 GM TUBE TP SCH ×2 (09:46→21:43)
[2023-01-28] MEDS: VITAMINS A AND D TOPICAL OINTMENT 60 GM TUBE TP SCH (09:46)
[2023-01-28] MEDS: NICOTINE 10 MG CARTRIDGE (INHALER) IH PRN ×3 (09:47→21:42)
[2023-01-28] MEDS: THIAMINE HCL 100 MG TABLET (FP) PO SCH (21:42)
[2023-01-28] MEDS: LIDOCAINE PATCH REMOVAL MC SCH (21:42)
[2023-01-28] MEDS: MELATONIN 5 MG TABLETS PO SCH (21:43)
[2023-01-29] MEDS: ASPIRIN 81 MG CHEWABLE TABLETS PO SCH (09:42)
[2023-01-29] MEDS: APIXABAN 5 MG TABLET PO SCH ×2 (09:42→21:18)
[2023-01-29] MEDS: PRENATAL VITAMINS W/ FOLIC ACID TABLET (FP) PO SCH (09:43)
[2023-01-29] MEDS: NICOTINE 10 MG CARTRIDGE (INHALER) IH PRN ×3 (09:43→21:18)
[2023-01-29] MEDS: LIDOCAINE 5% TOPICAL PATCH TP SCH (09:43)
[2023-01-29] MEDS: NICOTINE 7 MG/24 HOURS TOPICAL PATCH TD SCH (09:43)
[2023-01-29] MEDS: VITAMINS A AND D TOPICAL OINTMENT 60 GM TUBE TP SCH (09:44)
[2023-01-29] MEDS: LISINOPRIL 5 MG TABLET PO SCH (09:45)
[2023-01-29] MEDS: TOLNAFTATE 1% CREAM 15 GM TUBE TP SCH ×2 (09:46→21:19)
[2023-01-29] MEDS: MELATONIN 5 MG TABLETS PO SCH (21:18)
[2023-01-29] MEDS: THIAMINE HCL 100 MG TABLET (FP) PO SCH (21:18)
[2023-01-29] MEDS: LIDOCAINE PATCH REMOVAL MC SCH (21:19)
[2023-01-30 07:14] VITALS: BP 123/60; PULSE 59; RESP 18; TEMP 97.7
[2023-01-30] MEDS: NICOTINE 7 MG/24 HOURS TOPICAL PATCH TD SCH (09:52)
[2023-01-30] MEDS: VITAMINS A AND D TOPICAL OINTMENT 60 GM TUBE TP SCH (09:52)
[2023-01-30] MEDS: TOLNAFTATE 1% CREAM 15 GM TUBE TP SCH (09:52)
[2023-01-30] MEDS: PRENATAL VITAMINS W/ FOLIC ACID TABLET (FP) PO SCH (09:52)
[2023-01-30] MEDS: LISINOPRIL 5 MG TABLET PO SCH (09:53)
[2023-01-30] MEDS: LIDOCAINE 5% TOPICAL PATCH TP SCH (09:53)
[2023-01-30] MEDS: APIXABAN 5 MG TABLET PO SCH (09:53)
[2023-01-30] MEDS: ASPIRIN 81 MG CHEWABLE TABLETS PO SCH (09:53)
[2023-01-30] MEDS: NICOTINE 10 MG CARTRIDGE (INHALER) IH PRN (09:54)
== END 2023-01-30 10:18 | disposition home or self-care (01) | DRG 772 ==
LOC: YASAS 12:05 → Y5N 12:07
PROVIDERS: ADMIT Allergy & Immunology; ATTEND Allergy & Immunology
PROC: HZ42ZZZ Group Counseling for Substance Abuse Treatment, Cognitive-Behavioral (ICD-10-PCS; principal; 2023-01-08)
DX: F10.20 Alcohol dependence, uncomplicated (principal); F14.20 Cocaine dependence, uncomplicated; F12.20 Cannabis dependence, uncomplicated; F17.210 Nicotine dependence, cigarettes, uncomplicated; I10 Essential (primary) hypertension; E11.9 Type 2 diabetes mellitus without complications; B35.3 Tinea pedis; M25.561 Pain in right knee; M62.838 Other muscle spasm; Z86.711 Personal history of pulmonary embolism; Z79.01 Long term (current) use of anticoagulants; Z56.0 Unemployment, unspecified; Z59.00 Homelessness unspecified
CPT/HCPCS: 82962

== ENCOUNTER 2023-08-20 13:36 | Inpatient (IN) | payer OTHER ==
[2023-08-20 14:36] VITALS: BMI 29.4
[2023-08-20] MEDS ORDERED: NALOXONE HCL 0.4 MG/ML VIAL IM PRN (16:49)
[2023-08-20] MEDS ORDERED: MAG HYDROX/AL HYDROX/SIMETH 30 ML UNIT-DOSE CUP PO PRN (16:49)
[2023-08-20] MEDS ORDERED: ACETAMINOPHEN 325 MG TABLET (FP) PO PRN (16:49)
[2023-08-20] MEDS ORDERED: guaiFENesin 600 MG TABLET.ER (FP) PO PRN (16:49)
[2023-08-20] MEDS ORDERED: NALOXONE HCL (KLOXXADO) 8 MG SPRAY NS PRN (16:49)
[2023-08-20] MEDS ORDERED: MAGNESIUM HYDROX 2400MG/30ML ORAL SUSPENSION 30 ML CUP PO PRN (16:49)
[2023-08-20] MEDS ORDERED: BENZONATATE 200 MG CAPSULE PO PRN (16:49)
[2023-08-20] MEDS ORDERED: BENZOCAINE/MENTHOL (CHLORASEPTIC ) LOZENGE MM PRN (16:49)
[2023-08-20] MEDS ORDERED: METHOCARBAMOL 500 MG TABLET PO PRN (16:49)
[2023-08-20] MEDS ORDERED: DICYCLOMINE HCL 10 MG CAPSULE PO PRN (16:49)
[2023-08-20] MEDS ORDERED: NICOTINE POLACRILEX 2 MG GUM BUC PRN (16:49)
[2023-08-20] MEDS ORDERED: ONDANSETRON *ODT* 4 MG TABLET SL PRN (16:49)
[2023-08-20] MEDS ORDERED: LOPERAMIDE HCL 2 MG CAPSULE PO PRN (16:49)
[2023-08-20] MEDS ORDERED: POLYETHYLENE GLYCOL (HEALTHYLAX) 3350 17 GM PACKET PO PRN (16:49)
[2023-08-20] MEDS: hydrOXYzine PAMOATE 25 MG CAPSULE (FP) PO PRN (17:59)
[2023-08-20] MEDS ORDERED: BACITRACIN ZINC 15 GM TUBE TOPICAL OINTMENT TP SCH (22:00)
[2023-08-20] MEDS: BACITRACIN 0.9 GM PACKET TP SCH (22:26)
[2023-08-20] MEDS: THIAMINE HCL 100 MG TABLET (FP) PO SCH (22:26)
[2023-08-20] MEDS: SULFAMETHOXAZOLE/TRIMETHOPRIM 800MG/160MG D.S. TABLET PO SCH (22:26)
[2023-08-20] MEDS: ATORVASTATIN CA 20 MG TABLET (FP) PO SCH (22:26)
[2023-08-20] MEDS: APIXABAN 5 MG TABLET PO SCH (22:26)
[2023-08-20] MEDS: MELATONIN 5 MG TABLETS PO SCH (22:26)
[2023-08-21] MEDS: metFORMIN HCL 500 MG TABLET (FP) PO SCH ×2 (06:17→17:11)
[2023-08-21] MEDS ORDERED: chlordiazePOXIDE HCL 25 MG CAPSULE PO PRN (09:05)
[2023-08-21 09:30] LABS: POTASSIUM 4.6 mmol/L (3.5-5.1)
[2023-08-21 09:35] LABS: HEMATOCRIT 38.5 % (35.4-49); HEMOGLOBIN 12.3 GM/dL (11.7-16.9); MEAN CELL VOLUME 93.7 fl (80-96); MEAN PLT VOLUME 8.2 fl (7.5-11.1); PLATELET COUNT 232 10^3/uL (134-434); RBC 4.11 M/mm3 (4.00-5.60); RDW 14.4 % (11.9-15.9); WHITE BLOOD COUNT 6.2 K/mm3 (4.0-10.0)
[2023-08-21 09:36] LABS: BLOOD UREA NITROGEN 17.6 mg/dL (7-18)
[2023-08-21 09:37] LABS: ALBUMIN 2.9 g/dl (3.4-5.0); CALCIUM 8.4 mg/dL (8.5-10.1); CREATININE 1.1 mg/dL (0.55-1.3)
[2023-08-21 09:39] LABS: BILIRUBIN,TOTAL 0.2 mg/dL (0.2-1); TOT PROT 6.1 g/dl (6.4-8.2)
[2023-08-21] MEDS: hydrOXYzine PAMOATE 25 MG CAPSULE (FP) PO PRN (10:14)
[2023-08-21] MEDS: PRENATAL VITAMINS W/ FOLIC ACID TABLET (FP) PO SCH (10:14)
[2023-08-21] MEDS: ASPIRIN 81 MG CHEWABLE TABLETS PO SCH (10:14)
[2023-08-21] MEDS: BACITRACIN 0.9 GM PACKET TP SCH ×2 (10:14→22:22)
[2023-08-21] MEDS: LISINOPRIL 5 MG TABLET PO SCH (10:15)
[2023-08-21] MEDS: APIXABAN 5 MG TABLET PO SCH ×2 (10:15→22:23)
[2023-08-21] MEDS: SULFAMETHOXAZOLE/TRIMETHOPRIM 800MG/160MG D.S. TABLET PO SCH ×2 (10:15→22:22)
[2023-08-21] MEDS: chlordiazePOXIDE HCL 25 MG CAPSULE PO SCH ×3 (10:43→22:23)
[2023-08-21] MEDS: ATORVASTATIN CA 20 MG TABLET (FP) PO SCH (22:22)
[2023-08-21] MEDS: THIAMINE HCL 100 MG TABLET (FP) PO SCH (22:22)
[2023-08-21] MEDS: MELATONIN 5 MG TABLETS PO SCH (22:23)
[2023-08-22] MEDS: chlordiazePOXIDE HCL 25 MG CAPSULE PO SCH ×4 (05:51→22:39)
[2023-08-22] MEDS: metFORMIN HCL 500 MG TABLET (FP) PO SCH ×2 (06:11→17:29)
[2023-08-22] MEDS: APIXABAN 5 MG TABLET PO SCH ×2 (10:14→22:39)
[2023-08-22] MEDS: ASPIRIN 81 MG CHEWABLE TABLETS PO SCH (10:14)
[2023-08-22] MEDS: BACITRACIN 0.9 GM PACKET TP SCH ×2 (10:14→23:26)
[2023-08-22] MEDS: LISINOPRIL 5 MG TABLET PO SCH (10:14)
[2023-08-22] MEDS: SULFAMETHOXAZOLE/TRIMETHOPRIM 800MG/160MG D.S. TABLET PO SCH ×2 (10:14→22:38)
[2023-08-22] MEDS: PRENATAL VITAMINS W/ FOLIC ACID TABLET (FP) PO SCH (10:14)
[2023-08-22] MEDS: hydrOXYzine PAMOATE 25 MG CAPSULE (FP) PO PRN (10:15)
[2023-08-22] MEDS: ATORVASTATIN CA 20 MG TABLET (FP) PO SCH (22:38)
[2023-08-22] MEDS: THIAMINE HCL 100 MG TABLET (FP) PO SCH (22:38)
[2023-08-22] MEDS: MELATONIN 5 MG TABLETS PO SCH (22:40)
[2023-08-23] MEDS: chlordiazePOXIDE HCL 25 MG CAPSULE PO SCH ×4 (05:19→22:08)
[2023-08-23] MEDS: metFORMIN HCL 500 MG TABLET (FP) PO SCH ×2 (06:02→17:08)
[2023-08-23] MEDS: PRENATAL VITAMINS W/ FOLIC ACID TABLET (FP) PO SCH (10:22)
[2023-08-23] MEDS: APIXABAN 5 MG TABLET PO SCH ×2 (10:23→22:08)
[2023-08-23] MEDS: LISINOPRIL 5 MG TABLET PO SCH (10:23)
[2023-08-23] MEDS: ASPIRIN 81 MG CHEWABLE TABLETS PO SCH (10:23)
[2023-08-23] MEDS: BACITRACIN 0.9 GM PACKET TP SCH ×2 (10:24→22:08)
[2023-08-23] MEDS: SULFAMETHOXAZOLE/TRIMETHOPRIM 800MG/160MG D.S. TABLET PO SCH ×2 (10:24→22:08)
[2023-08-23] MEDS: ATORVASTATIN CA 20 MG TABLET (FP) PO SCH (22:08)
[2023-08-23] MEDS: THIAMINE HCL 100 MG TABLET (FP) PO SCH (22:08)
[2023-08-23] MEDS: MELATONIN 5 MG TABLETS PO SCH (22:29)
[2023-08-24] MEDS ORDERED: chlordiazePOXIDE HCL 10 MG CAPSULE PO PRN
[2023-08-24] MEDS: chlordiazePOXIDE HCL 10 MG CAPSULE PO SCH ×4 (05:23→22:23)
[2023-08-24] MEDS: metFORMIN HCL 500 MG TABLET (FP) PO SCH ×2 (06:00→17:23)
[2023-08-24] MEDS: SULFAMETHOXAZOLE/TRIMETHOPRIM 800MG/160MG D.S. TABLET PO SCH ×2 (10:55→22:23)
[2023-08-24] MEDS: APIXABAN 5 MG TABLET PO SCH ×2 (10:55→22:23)
[2023-08-24] MEDS: PRENATAL VITAMINS W/ FOLIC ACID TABLET (FP) PO SCH (10:55)
[2023-08-24] MEDS: LISINOPRIL 5 MG TABLET PO SCH (10:56)
[2023-08-24] MEDS: ASPIRIN 81 MG CHEWABLE TABLETS PO SCH (10:56)
[2023-08-24] MEDS: BACITRACIN 0.9 GM PACKET TP SCH ×2 (10:56→22:23)
[2023-08-24] MEDS: ALBUTEROL SO4 HFA INHALER IH PRN (20:36)
[2023-08-24] MEDS: THIAMINE HCL 100 MG TABLET (FP) PO SCH (22:23)
[2023-08-24] MEDS: ATORVASTATIN CA 20 MG TABLET (FP) PO SCH (22:23)
[2023-08-24] MEDS: MELATONIN 5 MG TABLETS PO SCH (22:24)
[2023-08-25] MEDS: chlordiazePOXIDE HCL 10 MG CAPSULE PO SCH ×2 (05:21→18:13)
[2023-08-25] MEDS: metFORMIN HCL 500 MG TABLET (FP) PO SCH ×2 (06:17→18:11)
[2023-08-25] MEDS: BACITRACIN 0.9 GM PACKET TP SCH ×2 (09:43→22:20)
[2023-08-25] MEDS: PRENATAL VITAMINS W/ FOLIC ACID TABLET (FP) PO SCH (09:43)
[2023-08-25] MEDS: ASPIRIN 81 MG CHEWABLE TABLETS PO SCH (09:43)
[2023-08-25] MEDS: APIXABAN 5 MG TABLET PO SCH ×2 (09:44→22:20)
[2023-08-25] MEDS: SULFAMETHOXAZOLE/TRIMETHOPRIM 800MG/160MG D.S. TABLET PO SCH (09:44)
[2023-08-25] MEDS: hydrOXYzine PAMOATE 25 MG CAPSULE (FP) PO PRN (09:44)
[2023-08-25] MEDS: LISINOPRIL 5 MG TABLET PO SCH (09:44)
[2023-08-25] MEDS: MELATONIN 5 MG TABLETS PO SCH (22:19)
[2023-08-25] MEDS: ATORVASTATIN CA 20 MG TABLET (FP) PO SCH (22:20)
[2023-08-25] MEDS: THIAMINE HCL 100 MG TABLET (FP) PO SCH (22:20)
[2023-08-25] MEDS: ALBUTEROL SO4 HFA INHALER IH PRN (23:00)
[2023-08-26] MEDS ORDERED: chlordiazePOXIDE HCL 10 MG CAPSULE PO ONE (05:00)
[2023-08-26] MEDS: metFORMIN HCL 500 MG TABLET (FP) PO SCH (06:00)
[2023-08-26 06:34] VITALS: RESP 16
[2023-08-26 08:58] VITALS: BP 133/66; PULSE 68; TEMP 98.1
[2023-08-26] MEDS: PRENATAL VITAMINS W/ FOLIC ACID TABLET (FP) PO SCH (09:49)
[2023-08-26] MEDS: ASPIRIN 81 MG CHEWABLE TABLETS PO SCH (09:50)
[2023-08-26] MEDS: APIXABAN 5 MG TABLET PO SCH (09:50)
[2023-08-26] MEDS: BACITRACIN 0.9 GM PACKET TP SCH (09:50)
[2023-08-26] MEDS: LISINOPRIL 5 MG TABLET PO SCH (09:50)
== END 2023-08-26 10:15 | disposition other institution (70) | DRG 774 ==
LOC: YASAS 13:36 → Y6N 17:39
PROVIDERS: ADMIT Allergy & Immunology; ATTEND Surgery
PROC: HZ2ZZZZ Detoxification Services for Substance Abuse Treatment (ICD-10-PCS; principal; 2023-08-20)
DX: F10.230 Alcohol dependence with withdrawal, uncomplicated (principal); F14.20 Cocaine dependence, uncomplicated; F17.210 Nicotine dependence, cigarettes, uncomplicated; I10 Essential (primary) hypertension; L08.89 Other specified local infections of the skin and subcutaneous tissue; E11.9 Type 2 diabetes mellitus without complications; Z79.84 Long term (current) use of oral hypoglycemic drugs; Z86.711 Personal history of pulmonary embolism; Z79.01 Long term (current) use of anticoagulants
CPT/HCPCS: 36415; 80053; 82962; 85027; 86780; 87635; 87811

== ENCOUNTER 2023-11-02 21:12 | Inpatient (IN) | payer OTHER ==
[2023-11-02 21:42] VITALS: BMI 27.2
[2023-11-02] MEDS ORDERED: ALBUTEROL SO4 HFA INHALER IH PRN (22:06)
[2023-11-02] MEDS ORDERED: ACETAMINOPHEN 325 MG TABLET (FP) PO PRN ×2 (22:22)
[2023-11-02] MEDS ORDERED: DICYCLOMINE HCL 10 MG CAPSULE PO PRN (22:22)
[2023-11-02] MEDS ORDERED: MAG HYDROX/AL HYDROX/SIMETH 30 ML UNIT-DOSE CUP PO PRN (22:22)
[2023-11-02] MEDS ORDERED: BENZONATATE 200 MG CAPSULE PO PRN (22:22)
[2023-11-02] MEDS ORDERED: LOPERAMIDE HCL 2 MG CAPSULE PO PRN (22:22)
[2023-11-02] MEDS ORDERED: P-EPHED 60MG/TRIPROLIDI 2.5MG TABLET PO PRN (22:22)
[2023-11-02] MEDS ORDERED: BENZOCAINE/MENTHOL (CHLORASEPTIC ) LOZENGE MM PRN (22:22)
[2023-11-02] MEDS ORDERED: POLYETHYLENE GLYCOL (HEALTHYLAX) 3350 17 GM PACKET PO PRN (22:22)
[2023-11-02] MEDS ORDERED: ONDANSETRON *ODT* 4 MG TABLET SL PRN (22:22)
[2023-11-02] MEDS ORDERED: MAGNESIUM HYDROX 2400MG/30ML ORAL SUSPENSION 30 ML CUP PO PRN (22:22)
[2023-11-02] MEDS ORDERED: guaiFENesin 600 MG TABLET.ER (FP) PO PRN (22:22)
[2023-11-02] MEDS ORDERED: NICOTINE POLACRILEX 2 MG GUM BUC PRN (22:22)
[2023-11-02] MEDS ORDERED: diazePAM 5 MG TABLET ONE (23:02)
[2023-11-02] MEDS: APIXABAN 5 MG TABLET PO SCH (23:05)
[2023-11-02] MEDS: diazePAM 5 MG TABLET PO SCH (23:05)
[2023-11-03] MEDS: metFORMIN HCL 500 MG TABLET (FP) PO SCH (06:09)
[2023-11-03 09:42] LABS: HEMATOCRIT 39.1 % (35.4-49); HEMOGLOBIN 12.5 GM/dL (11.7-16.9); MCH 30.8 pg (25.7-33.7); MEAN PLT VOLUME 8.3 fl (7.5-11.1); PLATELET COUNT 180 10^3/uL (134-434); RBC 4.07 M/mm3 (4.00-5.60); RDW 15.6 % (11.9-15.9); WHITE BLOOD COUNT 5.2 K/mm3 (4.0-10.0)
[2023-11-03 09:50] LABS: CHLORIDE 110 mmol/L (98-107); POTASSIUM 4.4 mmol/L (3.5-5.1); SODIUM 142 mmol/L (136-145)
[2023-11-03 09:55] LABS: ANION GAP 3 mmol/L (4-13); BLOOD UREA NITROGEN 17.5 mg/dL (7-18); CALCIUM 8.5 mg/dL (8.5-10.1); CO2 29 mmol/L (21-32); GLUCOSE,RANDOM 112 mg/dL (74-106)
[2023-11-03 09:56] LABS: ALBUMIN 2.8 g/dl (3.4-5.0)
[2023-11-03 09:58] LABS: SGOT/AST 17 U/L (15-37)
[2023-11-03 09:59] LABS: SGPT/ALT 26 U/L (13-61)
[2023-11-03 10:00] LABS: BILIRUBIN,TOTAL 0.1 mg/dL (0.2-1); TOT PROT 5.8 g/dl (6.4-8.2)
[2023-11-03 10:01] LABS: ALK PHOS 69 U/L (45-117)
[2023-11-03] MEDS: PRENATAL VITAMINS W/ FOLIC ACID TABLET (FP) PO SCH (10:20)
[2023-11-03] MEDS: ASPIRIN 81 MG CHEWABLE TABLETS PO SCH (10:20)
[2023-11-03] MEDS: LISINOPRIL 5 MG TABLET PO SCH (10:21)
[2023-11-03] MEDS: ATORVASTATIN CA 20 MG TABLET (FP) PO SCH (22:30)
[2023-11-03] MEDS: THIAMINE HCL 100 MG TABLET (FP) PO SCH (22:30)
[2023-11-03] MEDS: MELATONIN 5 MG TABLETS PO SCH (22:30)
[2023-11-04] MEDS: METHOCARBAMOL 500 MG TABLET PO PRN (06:16)
[2023-11-04] MEDS: diazePAM 5 MG TABLET PO SCH (06:17)
[2023-11-05] MEDS: diazePAM 5 MG TABLET PO SCH (05:29)
[2023-11-05] MEDS: diazePAM 5 MG TABLET PO PRN (10:34)
[2023-11-06] MEDS: diazePAM 5 MG TABLET PO ONE (05:53)
[2023-11-06 09:01] VITALS: BP 103/60; PULSE 68; RESP 18; TEMP 98.2
== END 2023-11-06 10:27 | disposition other institution (70) | DRG 774 ==
LOC: YASAS 21:12 → Y3N 23:28
PROVIDERS: ADMIT Allergy & Immunology; ATTEND Surgery
PROC: HZ2ZZZZ Detoxification Services for Substance Abuse Treatment (ICD-10-PCS; principal; 2023-11-02)
DX: F10.230 Alcohol dependence with withdrawal, uncomplicated (principal); F14.20 Cocaine dependence, uncomplicated; F17.210 Nicotine dependence, cigarettes, uncomplicated; I10 Essential (primary) hypertension; Z86.711 Personal history of pulmonary embolism; Z79.01 Long term (current) use of anticoagulants
CPT/HCPCS: 36415; 80053; 80307; 82962; 85027; 86780; 87635; 87811

== ENCOUNTER 2024-07-20 16:56 | Inpatient (IN) | payer OTHER ==
[2024-07-20 18:58] VITALS: BMI 26.6
[2024-07-20] MEDS ORDERED: NALOXONE HCL 0.4 MG/ML VIAL IM PRN (22:23)
[2024-07-20] MEDS ORDERED: NALOXONE (NARCAN) HCL 4 MG/0.1 ML SPRAY NS PRN (22:23)
[2024-07-20] MEDS ORDERED: NICOTINE POLACRILEX 2 MG GUM BUC PRN (22:23)
[2024-07-20] MEDS ORDERED: ONDANSETRON *ODT* 4 MG TABLET SL PRN (22:23)
[2024-07-20] MEDS ORDERED: IBUPROFEN 600 MG TABLET (FP) PO PRN (22:23)
[2024-07-20] MEDS ORDERED: MAGNESIUM HYDROX 2400MG/30ML ORAL SUSPENSION 30 ML CUP PO PRN (22:23)
[2024-07-20] MEDS ORDERED: BENZOCAINE/MENTHOL (CHLORASEPTIC ) LOZENGE MM PRN (22:23)
[2024-07-20] MEDS ORDERED: BENZONATATE 200 MG CAPSULE PO PRN (22:23)
[2024-07-20] MEDS ORDERED: guaiFENesin 600 MG TABLET.ER (FP) PO PRN (22:23)
[2024-07-20] MEDS ORDERED: MAG HYDROX/AL HYDROX/SIMETH 30 ML UNIT-DOSE CUP PO PRN (22:23)
[2024-07-20] MEDS ORDERED: BISMUTH SUBSALICYLATE 524 MG/30 ML PO PRN (22:23)
[2024-07-20] MEDS ORDERED: LOPERAMIDE HCL 2 MG CAPSULE PO PRN (22:23)
[2024-07-20] MEDS ORDERED: IBUPROFEN 400 MG TABLET (FP) PO PRN (22:23)
[2024-07-20] MEDS ORDERED: POLYETHYLENE GLYCOL (HEALTHYLAX) 3350 17 GM PACKET PO PRN (22:23)
[2024-07-21] MEDS ORDERED: hydrOXYzine PAMOATE 25 MG CAPSULE (FP) PO ONE (02:23)
[2024-07-21] MEDS ORDERED: METHOCARBAMOL 500 MG TABLET ONE (02:23)
[2024-07-21] MEDS: hydrOXYzine PAMOATE 25 MG CAPSULE (FP) PO PRN (02:31)
[2024-07-21] MEDS: METHOCARBAMOL 500 MG TABLET PO PRN (02:32)
[2024-07-21] MEDS ORDERED: PRENATAL VITAMINS W/ FOLIC ACID TABLET (FP) PO ONE (09:11)
[2024-07-21] MEDS: PRENATAL VITAMINS W/ FOLIC ACID TABLET (FP) PO SCH (09:15)
[2024-07-21] MEDS: NICOTINE 14 MG/24 HOURS TOPICAL PATCH TD SCH (09:15)
[2024-07-21] MEDS: LISINOPRIL 5 MG TABLET PO SCH (10:25)
[2024-07-21] MEDS ORDERED: chlordiazePOXIDE HCL 25 MG CAPSULE PO PRN (10:57)
[2024-07-21] MEDS: chlordiazePOXIDE HCL 25 MG CAPSULE PO SCH (11:10)
[2024-07-21 16:35] LABS: HEMATOCRIT 36.1 % (35.4-49); HEMOGLOBIN 11.9 GM/dL (11.7-16.9); MCH 31.4 pg (25.7-33.7); MEAN CELL VOLUME 95.3 fl (80-96); MEAN PLT VOLUME 8.3 fl (7.5-11.1); PLATELET COUNT 164 10^3/uL (134-434); RBC 3.79 M/mm3 (4.00-5.60); RDW 14.4 % (11.9-15.9); WHITE BLOOD COUNT 4.7 K/mm3 (4.0-10.0)
[2024-07-21 16:55] LABS: CHLORIDE 106 mmol/L (98-107); POTASSIUM 4.1 mmol/L (3.5-5.1); SODIUM 140 mmol/L (136-145)
[2024-07-21 17:00] LABS: ALBUMIN 2.8 g/dl (3.4-5.0)
[2024-07-21] MEDS: metFORMIN HCL 500 MG TABLET (FP) PO SCH (17:00)
[2024-07-21 17:01] LABS: ANION GAP 6 mmol/L (4-13); BLOOD UREA NITROGEN 12.9 mg/dL (7-18); CO2 28 mmol/L (21-32); GLUCOSE,RANDOM 119 mg/dL (74-106)
[2024-07-21 17:03] LABS: SGPT/ALT 21 U/L (13-61)
[2024-07-21 17:04] LABS: BILIRUBIN,TOTAL 0.3 mg/dL (0.2-1); SGOT/AST 19 U/L (15-37); TOT PROT 5.8 g/dl (6.4-8.2)
[2024-07-21 17:06] LABS: ALK PHOS 62 U/L (45-117)
[2024-07-21] MEDS: ACETAMINOPHEN 325 MG TABLET (FP) PO PRN (17:37)
[2024-07-21 17:58] LABS: HIV INTERPRETATION NEGATIVE (NEGATIVE)
[2024-07-21] MEDS: MELATONIN 5 MG TABLETS PO SCH (22:32)
[2024-07-21] MEDS: THIAMINE 100 MG TABLET PO SCH (22:32)
[2024-07-21] MEDS: ATORVASTATIN CA 20 MG TABLET (FP) PO SCH (22:33)
[2024-07-21] MEDS: TOLNAFTATE 1% CREAM 15 GM TUBE TP SCH (22:33)
[2024-07-21] MEDS: BACITRACIN 0.9 GM PACKET TP SCH (22:34)
[2024-07-22 09:00] VITALS: RESP 16
[2024-07-22] MEDS: LACTULOSE 20 GM/30 ML UDC (FOR ORAL USE ONLY) PO ONE (10:06)
[2024-07-22 13:24] VITALS: BP 136/63; PULSE 75; TEMP 98.2
[2024-07-23] MEDS ORDERED: chlordiazePOXIDE HCL 25 MG CAPSULE PO SCH (05:00)
[2024-07-24] MEDS ORDERED: chlordiazePOXIDE HCL 10 MG CAPSULE PO PRN
[2024-07-24] MEDS ORDERED: chlordiazePOXIDE HCL 10 MG CAPSULE PO SCH (05:00)
[2024-07-25] MEDS ORDERED: chlordiazePOXIDE HCL 10 MG CAPSULE PO SCH (05:00)
[2024-07-26] MEDS ORDERED: chlordiazePOXIDE HCL 10 MG CAPSULE PO ONE (05:00)
== END 2024-07-22 17:30 | disposition left against medical advice (07) | DRG 770 ==
LOC: YASAS 16:56 → Y6N 07-21 09:10
PROVIDERS: ADMIT Allergy & Immunology; ATTEND Surgery
PROC: HZ2ZZZZ Detoxification Services for Substance Abuse Treatment (ICD-10-PCS; principal; 2024-07-21)
DX: F10.230 Alcohol dependence with withdrawal, uncomplicated (principal); F14.20 Cocaine dependence, uncomplicated; F12.20 Cannabis dependence, uncomplicated; F17.210 Nicotine dependence, cigarettes, uncomplicated; I10 Essential (primary) hypertension; E78.5 Hyperlipidemia, unspecified; E11.9 Type 2 diabetes mellitus without complications; Z79.84 Long term (current) use of oral hypoglycemic drugs; K59.00 Constipation, unspecified; Z56.0 Unemployment, unspecified; Z59.00 Homelessness unspecified; Z86.711 Personal history of pulmonary embolism
CPT/HCPCS: 36415; 80053; 80305; 80307; 82962; 85027; 86780; 87389; 93005; 93010